=== PATIENT | female | born 1990 | race Caucasian/White ===

== ENCOUNTER 2018-06-20 08:42 | Emergency (ER) | payer MEDICAID ==
[~2018-06-20] VITALS: Wt 69.0 kg
[2018-06-20 08:44] VITALS: BP 125/71; PULSE 72; RESP 18
[2018-06-20] MEDS ORDERED: ACETAMINOPHEN 325 MG TAB PO ONE (09:30)
[2018-06-20] MEDS ORDERED: TETRACAINE 0.5% 4 ML OPH BOTH EYES SCH (09:30)
[2018-06-20] MEDS ORDERED: SULF5DRO17 RIGHT EYE (11:22)
--- NOTE | 2018-06-20 18:50 | ERD ---
ER Documentation Chief Complaint Chief Complaint RIGHT EYE PAIN/REDNESS HPI 28-year-old female patient with no significant past medical history presents the ED complaining of right eye redness. Denies any injuries or having any foreign bodies in her right eye. Denies any itchiness, rubbing her eyes or scratching h er eyes. Denies any fever, chills, nausea, vomiting, diarrhea, neck stiffness. Reports that she has some slight blurry vision of the right eye. States that she has some slight headache on the right side, gradual onset. Described as achy and rates it a 3 out of 10. She has not taking any medications. ROS All systems reviewed and are negative except as per history of present illness. Medications Home Meds Active Scripts Sulfacetamide Sodium* (Bleph-10*) 10%-5 Ml Opht Drops, 1 DROP RIGHT EYE Q3H for 7 Days, #1 EA Prov:NIA EDWARDS PA-C 06/20/18 Allergies Allergies: Coded Allergies: No Known Allergy (Unverified , 06/10/14) PMhx/Soc Medical and Surgical Hx: pt denies Medical Hx, pt denies Surgical Hx Hx Alcohol Use: No Hx Substance Use: No Hx Tobacco Use: No Smoking Status: Never smoker FmHx Family History: No diabetes, No coronary disease Physical Exam Vitals Vital Signs Date Temp Pulse Resp B/P (MAP) Pulse Ox O2 O2 Flow FiO2 Time Delivery Rate 06/20/18 97.9 72 18 125/71 99 08:44 (89) Physical Exam Const: Tyl-qzi-elmttgzzw, well-nourished. In no acute distress. Head: Atraumatic, normocephalic Eyes: Left normal Conjunctiva without injection. Right injected conjunctiva. No purulent discharge. PERRLA. EOMI ENT: Normal external ear. Ear canal without erythema. Tympanic membrane pearly hollins without effusion or bulging. Nasal canal clear with normal turbinates. Moist oropharynx without tonsillar exudates. Non-erythematous pharynx. Uvula midline. No drooling. No trismus. Neck: No cervical midline tenderness. Full range of motion. No meningismus. No cervical lymphadenopathy. No JVD. Resp: Clear to auscultation bilaterally. No wheezing, rhonchi, rales, or crackles. No accessory muscle use. No retractions. Cardio: Regular rate and rhythm. No murmurs, rubs or gallops. Abd: Soft, non tender, non distended. Normal bowel sounds. No palpable masses. No rebound tenderness. No guarding. Negative McBurney's Point. Negative Garcia's Sign. Skin: Normal skin turgor. No petechiae or rashes Back: No midline tenderness. No CVA tenderness. Ext: No cyanosis, or edema. Distal pulses intact bilaterally. Neur: Awake and alert. Normal gait. Normal coordination. Cranial Nerves II- VII intact. Normal finger to nose. Muscle strength 5/5. Sensation intact. Psych: Normal Mood and Affect Results 24 hrs Current Medications Medications Dose Sig/Nitza Start Time Status Last (Trade) Ordered Route PRN Stop Time Admin Dose Reason Admin Tetracaine 1 drop ONCE BOTH 06/20/18 DC HCl EYES 09:30 (Tetracaine 06/20/18 11:34 0.5% Steri-Unit Bonny) 650 mg ONCE ONCE 06/20/18 DC 06/20/18 Acetaminophen PO 09:30 09:39 (Tylenol 06/20/18 09:31 Tab) Procedures/MDM 28-year-old female patient with no significant past medical history presents to ED complaining of right eye redness that started last night. Patient is afebrile and nontoxic-appearing. Patient's ocular symptoms have stabilized while they have been evaluated in the department and are appropriate for outpatient work up. Eye Exam w/ Wood's lamp: Visual Acuity: Bilateral visual acuity 20/50. Visual Segundo: Intact in all four quadrants bilaterally Lac ducts/glands: No swelling Lids w/ evertion: Normal, no foreign body Anterior Chamber: Clear Tonopen readings: [Right 18 mmHg Left 16 mmHg] Low suspicion for ruptured globe, retinal detachment, periorbital cellulitis, acute angle closure glaucoma, deep space infection, iritis, traumatic hyphema, conjunctivitis, subconjunctival hemorrhage, corneal abrasion, corneal ulcer, pterygium, hypopyon, blepharitis, hordeolum, chalazion, or other emergent conditions. Strictly instructed patient to follow up with an transitional kindergarten teacher within 24 hours. Instructed patient to return to the ED for any worsening symptoms. Patient is hemodynamically stable. Patient's questions were answered. Patient understood and agreed with discharge plan. Disclaimer: Inadvertent spelling and grammatical errors are likely due to EHR/dictation software use and do not reflect on the overall quality of patient care. Also, please note that the electronic time recorded on this note does not necessarily reflect the actual time of the patient encounter. Departure Diagnosis: Primary Impression: Redness of right eye Additional Impression: Acute right eye pain Condition: Stable Patient Instructions: Understanding Red Eye: Causes, Blurred Vision [facility] Usted se peterson hecho un examen mdico de control que le indica que no est en taty condicin que requiera tratamiento urgente en el Departamento de Emergencia. Un estudio ms profundo y el tratamiento de orourke condicin pueden esperar sin ningn riesgo hasta que usted sea atendida/o en el consultorio de orourke mdico o taty clnica. Es responsabilidad suya arreglar taty charli para el seguimiento del naresh. MANEJO DE CONDICIONES NO URGENTES EN EL FUTURO 1) Si usted tiene un mdico de atencin primaria: Usted debera llamar a orourke mdico de atencin primaria antes de venir al departamento de emergencia. Despus de las horas de consultorio, orourke doctor o orourke asociado/a est disponible por telfono. El mdico o enfermero de corine en el servicio telefnico puede asesorarle por ilya medio para atender el problema, o naresh contrario se puede programar taty charli. 2) Si usted no tiene un mdico de atencin primaria: Llame al mdico o clnica de referencia que aparece abajo nicole las horas de consultorio para hacer taty charli para que le vean. CLINICAS: [facility] [phone] [address] [phone] [address] [facility] [phone] [address] [facility] [phone] [address] [facility] 161 [phone] 6801 [facility] [phone] [address] [facility] () Usted se peterson hecho un examen mdico de control que le indica que no est en taty condicin que requiera tratamiento urgente en el Departamento de Emergencia. Un estudio ms profundo y el tratamiento de orourke condicin pueden esperar sin ningn riesgo hasta que usted sea atendida/o en el consultorio de orourke mdico o taty clnica. Es responsabilidad suya arreglar taty charli para el seguimiento del naresh. MANEJO DE CONDICIONES NO URGENTES EN EL FUTURO 1) Si usted tiene un mdico de atencin primaria: Usted debera llamar a orourke mdico de atencin primaria antes de venir al departamento de emergencia. Despus de las horas de consultorio, orourke doctor o orourke asociado/a est disponible por telfono. El mdico o enfermero de corine en el servicio telefnico puede asesorarle por ilya medio para atender el problema, o naresh contrario se puede programar taty charli. 2) Si usted no tiene un mdico de atencin primaria: Llame al mdico o condado institucions de referencia que aparece abajo nicole las horas de consultorio para hacer taty charli para que le vean. SI USTED NO PUEDE PAGAR PARA FERNANDA UN MEDICO puede ir a: [facility] [address] [place] [address] [facility] [address] [place] [address] [facility] [address] [place] [address] [facility] [address] [place] [address] [facility] Hours: Mon - Fri 9:00 AM - 5:00 PM Additional Instructions: Seguimiento con un oftalmlogo dentro de las 24 horas Dgale a la secretaria que nosotros le instruimos hacer esta charli.Avise o llame si orourke condicin se empeora antes de la charli. Regresa aqui si peor o no mejor. NIA EDWARDS PA-C June 20, 2018 18:49
== END 2018-06-20 11:34 | disposition home or self-care (01) ==
LOC: FTE 08:42
DX: H57.89 Other specified disorders of eye and adnexa (principal)
CPT/HCPCS: 76536; Z7610